=== PATIENT | male | born 2000 | race Caucasian/White ===

== ENCOUNTER 2018-07-19 20:08 | Emergency (ER) | payer OTHER, SELFPAY ==
[2018-07-19 20:47] LABS: #Basophils 0.1 thou/uL (0.0-0.2); #Eosinphils 0.1 thou/uL (0.0-0.7); #Lymphocytes 3.6 thou/uL (1.20-3.40); #Monocytes 0.7 thou/uL (0.11-0.59); #Neutrophils 7.6 thou/uL (1.40-6.50); %Basophils 0.8 % (0.0-1.0); %Eosinophils 0.6 % (0.0-10.0); %Lymphocytes 29.7 % (28.0-48.0); %Monocytes 5.8 % (0.0-4.0); %Neutrophils 63.2 % (31.0-61.0); Hemoglobin 16.9 g/dL (14.0-18.0); Mean Corpuscular HGB CONC 35.5 g/dL (32.0-36.0); Mean Corpuscular Hemoglobin 31.7 pg (25.0-35.0); Mean Corpuscular Volume 89.3 fL (78.0-98.0); Platelet Count 255 thou/uL (130-400); RBC Distribution Width 11.5 % (11.5-14.5); Red Blood Cell (RBC) Count 5.32 mill/uL (4.00-5.20)
--- NOTE | 2018-07-19 20:58 | RAD ---
EXAM: CHEST ONE VIEW HISTORY: Chest pain. COMPARISON: None FINDINGS: The cardiac silhouette and pulmonary vasculature is within normal limits. The lungs are clear. The os seous structures are intact. IMPRESSION: No acute cardiopulmonary process.
[2018-07-19] MEDS ORDERED: Lorazepam 1 MG TAB ONE (21:04)
[2018-07-19 21:08] LABS: Anion Gap 18 mmol/L (10-20); BUN (Urea Nitrogen) 13 mg/dL (8.4-21.0); Calc. Creatinine Clearance 0 mL/min (70-130); Calcium 10.9 mg/dL (7.8-10.44); Carbon Dioxide 21 mmol/L (22-29); Chloride 107 mmol/L (98-107); Estimated GFR-MDRD 89; Glucose 103 mg/dL (70-105); Potassium 4.1 mmol/L (3.5-5.1); Sodium 142 mmol/L (136-145)
[2018-07-19] MEDS ORDERED: Lorazepam 2 MG/ML VIAL ONE (21:13)
== END 2018-07-19 22:23 | disposition home or self-care (01) ==
LOC: ERS 20:08
DX: F41.9 Anxiety disorder, unspecified (principal); F90.9 Attention-deficit hyperactivity disorder, unspecified type; F32.9 Major depressive disorder, single episode, unspecified; Z79.891 Long term (current) use of opiate analgesic; Z79.899 Other long term (current) drug therapy
CPT/HCPCS: 36415; 71045; 80048; 84443; 84484; 85025; 93005; 96372; J2060